=== PATIENT | female | born 1965 | race Caucasian/White ===

== ENCOUNTER 2022-01-29 12:27 | Day surgery (SDC) | payer BC ==
[~2022-01-29 12:27] MED LIST: Lactated Ringers 1,000 ML IV SCH; ceFAZolin 1 GM in Premix Bag 1 BAG IV SCH
[2022-01-29] MEDS ORDERED: Metoclopramide 10 MG/2 ML SDV IVPUSH PRN (12:30)
[2022-01-29] MEDS ORDERED: fentaNYL 50 MCG/ML SDV IVPUSH PRN (12:30)
[2022-01-29] MEDS ORDERED: HYDROmorphone 1 MG/ML Syringe IVPUSH PRN (12:30)
[2022-01-29] MEDS ORDERED: Naloxone 0.4 MG/ML SDV IVPUSH PRN (12:30)
[2022-01-29] MEDS ORDERED: Ondansetron 4 MG/2 ML SDV IVPUSH PRN (12:30)
[2022-01-29] MEDS ORDERED: Albuterol 0.083% 2.5 MG/3 ML Neb Soln NEB PRN (12:30)
[2022-01-29] MEDS ORDERED: Bupivacaine 0.25%/EPINEPHrine 1:200,000 10 ML SDV ONE (13:11)
[2022-01-29] MEDS ORDERED: Ropivacaine 0.5% 5 MG/ML 30 ML SDV ONE (14:02)
[2022-01-29] MEDS ORDERED: fentaNYL 250 MCG/5 ML SDV ONE (14:11)
[2022-01-29] MEDS ORDERED: Propofol 200 MG/20 ML SDV ONE (14:11)
[2022-01-29] MEDS ORDERED: Ketamine 500 mg/10 ML MDV ONE (14:42)
[2022-01-29] MEDS ORDERED: Ketorolac 30 MG/ML SDV ONE (15:02)
[2022-01-29] MEDS ORDERED: Ondansetron 4 MG/2 ML SDV ONE (15:02)
[2022-01-29] MEDS ORDERED: Dexamethasone 4 MG/ML 5 ML MDV ONE (15:02)
== END 2022-01-29 17:25 | disposition home or self-care (01) ==
LOC: MW.SDS 12:27
PROVIDERS: ATTEND Orthopaedic Surgery
DX: S42.022A Displaced fracture of shaft of left clavicle, initial encounter for closed fracture (principal); W19.XXXA Unspecified fall, initial encounter; Z88.8 Allergy status to other drugs, medicaments and biological substances; Z88.5 Allergy status to narcotic agent; Z88.1 Allergy status to other antibiotic agents
CPT/HCPCS: 23515; J1100; J1170; J1885; J2405; J2704; J2795; J3010; J3490; J7120